=== PATIENT | female | born 1965 | race Two or more races ===

== ENCOUNTER 2017-02-26 07:43 | Emergency (ER) | payer OTHER ==
[2017-02-26] MEDS ORDERED: Acetaminophen/HYDROcodone 325-5 MG Tab PO ONE (08:16)
--- NOTE | 2017-02-26 08:20 | EDM.PDOC ---
ED HPI GENERAL MEDICAL PROBLEM - General Chief Complaint: Abdominal Pain Stated Complaint: LOW BACK AND LOW ABD PAIN Time Seen by Provider: 02/26/17 08:09 Source of Information: Reports: Patient, RN Notes Reviewed - History of Present Illness INITIAL COMMENTS - FREE TEXT/NARRATIVE: 51 year old female comes in with voiding frequency, low back pain worsening over the past 5 days. Not aware of any injury. No fever, nausea or vomiting. Pain is worse with movement, radiates to lower abd and pelvis. 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: Neurological History: Reports: Brain Injury - Past Surgical History Female Surgical History: Reports: Section, Dilitation & Evacuation Musculoskeletal Surgical History: Reports: Other (See Below) Other Musculoskeletal Surgeries/Procedures:: bilateral tib fib fractures and has hardware in place Social & Family History - Tobacco Use Smoking Status *Q: Current Every Day Smoker Years of Tobacco use: 10 Packs/Tins Daily: 0.5 - Caffeine Use Caffeine Use: Reports: Coffee - Recreational Drug Use Recreational Drug Use: Yes Recreational Drug Type: Reports: Marijuana/Hashish Recreational Drug Use Frequency: Binges ED ROS GENERAL - Review of Systems Review Of Systems: See Below Constitutional: Denies: Fever, Chills, Diaphoresis HEENT: Reports: No Symptoms Respiratory: Denies: Shortness of Breath, Pleuritic Chest Pain Cardiovascular: Denies: Chest Pain GI/Abdominal: Reports: Abdominal Pain. Denies: Constipation, Diarrhea, Decreased Appetite, Nausea : Reports: Frequency, Urgency. Denies: Pain Musculoskeletal: Reports: Back Pain (low back) Skin: Reports: No Symptoms Neurological: Reports: No Symptoms. Denies: Numbness, Tingling, Weakness ED EXAM, RENAL/ - Physical Exam Exam: See Below General Appearance: Alert, Mild Distress Throat/Mouth: Normal Inspection, Normal Oropharynx Head: Atraumatic. No: Facial Swelling Neck: Supple, Full Range of Motion Respiratory/Chest: No Respiratory Distress, Lungs Clear, Normal Breath Sounds Cardiovascular: Regular Rate, Rhythm GI/Abdominal: Soft, Non-Tender Extremities: Normal Inspection, Normal Range of Motion Skin Exam: Warm, Dry, Normal Color Course - Vital Signs Last Recorded V/S: Last Vital Signs Temp 97.4 F 02/26/17 08:01 Pulse 63 02/26/17 08:01 Resp 13 02/26/17 08:01 BP 154/74 H 02/26/17 08:01 Pulse Ox 100 02/26/17 08:01 - Orders/Labs/Meds Labs: Laboratory Tests 02/26/17 02/26/17 02/26/17 Range/Units 08:00 08:27 08:27 WBC 11.05 H (3.98-10.04) K/mm3 RBC 4.44 (3.98-5.22) M/mm3 Hgb 14.1 (11.2-15.7) gm/L Hct 41.3 (34.1-44.9) % MCV 93.0 (79.4-94.8) fl MCH 31.8 (25.6-32.2) pg MCHC 34.1 (32.2-35.5) g/dl RDW Std Deviation 44.0 (36.4-46.3) fL Plt Count 320 (182-369) K/mm3 MPV 10.0 (9.4-12.3) fl Neut % (Auto) 61.3 (34.0-71.1) % Lymph % (Auto) 29.3 (19.3-51.7) % [place] % (Auto) 4.6 L (4.7-12.5) % Eos % (Auto) 3.8 (0.7-5.8) Baso % (Auto) 0.7 (0.1-1.2) % Neut # (Auto) 6.77 H (1.56-6.13) K/mm3 Lymph # (Auto) 3.24 (1.18-3.74) K/mm3 [place] # (Auto) 0.51 H (0.24-0.36) K/mm3 Eos # (Auto) 0.42 H (0.04-0.36) K/mm3 Baso # (Auto) 0.08 (0.01-0.08) K/mm3 Sodium 148 H (136-145) mEq/L Potassium 4.2 (3.5-5.1) mEq/L Chloride 113 H (98-107) mEq/L Carbon Dioxide 24 (21-32) mEq/L Anion Gap 15.2 H (5-15) BUN 9 (7-18) mg/dL Creatinine 0.7 (0.55-1.02) mg/dL Est Cr Clr Drug Dosing 87.48 mL/min Estimated GFR (MDRD) > 60 (>60) mL/min BUN/Creatinine Ratio 12.9 L (14-18) Glucose 119 H (74-106) mg/dL Calcium 9.0 (8.5-10.1) mg/dL Total Bilirubin 0.2 (0.2-1.0) mg/dL AST 12 L (15-37) U/L ALT 15 (14-59) U/L Alkaline Phosphatase 75 (46-116) U/L Total Protein 7.3 (6.4-8.2) g/dl Albumin 3.8 (3.4-5.0) g/dl Globulin 3.5 gm/dL Albumin/Globulin Ratio 1.1 (1-2) Urine Color Yellow (Yellow) Urine Appearance Clear (Clear) Urine pH 6.5 (5.0-8.0) Ur Specific Parsons 1.015 (1.005-1.030) Urine Protein Negative (Negative) Urine Glucose (UA) Negative (Negative) Urine Ketones Negative (Negative) Urine Occult Blood Trace-intact H (Negative) Urine Nitrite Negative (Negative) Urine Bilirubin Negative (Negative) Urine Urobilinogen 0.2 (0.2-1.0) Ur Leukocyte Esterase 2+ H (Negative) Urine RBC 0-5 (0-5) /hpf Urine WBC 5-10 H (0-5) /hpf Ur Epithelial Cells 0-5 (0-5) /hpf Urine Bacteria Few (FEW) /hpf Urine Mucus Not seen (FEW) /hpf Urine Trichomonas Few Meds: Medications Discontinued Medications Generic Name Dose Route Start Last Admin Trade Name Freq PRN Reason Stop Dose Admin Hydrocodone Bitart/Acetaminophen 1 tab 02/26/17 08:16 02/26/17 08:19 Unity 325-5 Mg PO 02/26/17 08:17 1 tab ONETIME ONE Administration Trimethoprim/Sulfamethoxazole 1 tab 02/26/17 09:07 02/26/17 09:15 Septra Ds PO 02/26/17 09:08 1 tab ONETIME ONE Administration - Re-Assessments/Exams Free Text/Narrative Re-Assessment/Exam: 02/26/17 09:13 Patient does have UTI, does not look like pyelo, afebrile, no nausea or vomiting , WBC very mildly elevated, will start on Bactrim DS bid for 7 days. Departure - Departure Time of Disposition: 09:00 Disposition: Home, Self-Care 01 Condition: Fair Clinical Impression: UTI (urinary tract infection) Qualifiers: Urinary tract infection type: acute cystitis Hematuria presence: without hematuria Qualified Code(s): N30.00 - Acute cystitis without hematuria - Discharge Information Prescriptions: Hydrocodone/Acetaminophen [Unity 5-325] 1 tab PO Q6HR PRN #10 tablet PRN Reason: Pain Sulfamethoxazole/Trimethoprim [Bactrim Ds Tablet] 1 each PO BID #14 tablet Instructions: Urinary Tract Infection, Adult, [id number] Referrals: PCP,None [Ordering Only Provider] - Forms: ED Department Discharge Additional Instructions: drink plenty of water, Bactrim DS antibiotic twice daily for 1 week or until gone, tylenol for mild to moderate discomfort or hydrocodone if needed for severe pain, do not take hydrocodone and tylenol at the same time, do not drive or work when taking hydrocodone. follow up clinic if not much better within 3 to 5 days as expected.
[2017-02-26] MEDS ORDERED: Sulfamethoxazole/Trimethoprim 800-160 MG Tab PO ONE (09:07)
== END 2017-02-26 09:35 | disposition home or self-care (01) ==
LOC: JD.ED 07:43
DX: N30.00 Acute cystitis without hematuria (principal); F17.210 Nicotine dependence, cigarettes, uncomplicated
CPT/HCPCS: 36415; 80053; 81001; 85025; 99283; A9270

== ENCOUNTER 2019-07-26 07:18 | Emergency (ER) | payer MEDICAID, OTHER ==
--- NOTE | 2019-07-26 07:42 | EDM.PDOC ---
ED HPI GENERAL MEDICAL PROBLEM - General Chief Complaint: Lower Extremity Injury/Pain Stated Complaint: LEFT KNEE PAIN Time Seen by Provider: 07/26/19 07:30 Source of Information: Reports: Patient History Limitations: Reports: No Limitations - History of Present Illness INITIAL COMMENTS - FREE TEXT/NARRATIVE: The patient said about 2 weeks ago she was taking her mother to a doctor's appointment and they were stepping off a curb and both fell. She got up right away to help her mom and she did not feel pain. She has been working for about 2 weeks and she has pain to the lateral knee. She had a knee replacement a few years ago. She has no other injuries. Onset: Sudden Duration: Week(s): (2) Location: Reports: Lower Extremity, Left (knee) Quality: Reports: Sharp Severity: Moderate Improves with: Reports: Immobilization Worsens with: Reports: Movement Context: Reports: Trauma (fall) Associated Symptoms: Reports: No Other Symptoms Left Knee Pain Score (Numeric/FACES): 5 - Related Data Allergies Allergy/AdvReac Type Severity Reaction Status Date / Time No Known Allergies Allergy Verified 07/26/19 07:27 Home Meds: Home Meds Cyclobenzaprine [Flexeril] 10 mg PO BEDTIME 07/26/19 [History] Hydrocodone/Acetaminophen [Hydrocodone-Acetamin 5-325 mg] 1 - 2 each PO Q6HR PRN #20 tablet 07/26/19 [Rx] Lisinopril/Hydrochlorothiazide [Lisinopril-Hctz 20-25 mg Tab] 20 - 25 mg PO DAILY 07/26/19 [History] Sennosides [Senna] 8.6 mg PO DAILY 07/26/19 [History] Venlafaxine HCl [Venlafaxine ER] 150 mg PO DAILY 07/26/19 [History] 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 History: Reports: Brain Injury - Past Surgical History Female Surgical History: Reports: Section, Dilitation & Evacuation Musculoskeletal Surgical History: Reports: Other (See Below) Other Musculoskeletal Surgeries/Procedures:: bilateral tib fib fractures and has hardware in place Social & Family History - Tobacco Use Smoking Status *Q: Former Smoker Used Tobacco, but Quit: Yes Month/Year Tobacco Last Used: 07/20/2019 - Caffeine Use Caffeine Use: Reports: None - Recreational Drug Use Recreational Drug Use: No Review of Systems - Review of Systems Review Of Systems: See Below Constitutional: Reports: No Symptoms Eyes: Reports: No Symptoms Ears: Reports: No Symptoms Nose: Reports: No Symptoms Mouth/Throat: Reports: No Symptoms Respiratory: Reports: No Symptoms Cardiovascular: Reports: No Symptoms GI/Abdominal: Reports: No Symptoms Genitourinary: Reports: No Symptoms Musculoskeletal: Reports: Joint Pain (left knee) ED EXAM, GENERAL - Physical Exam Exam: See Below Exam Limited By: No Limitations General Appearance: Alert, No Apparent Distress Ears: Normal External Exam Nose: Normal Inspection Head: Atraumatic, Normocephalic Neck: Normal Inspection Respiratory/Chest: No Respiratory Distress Extremities: Other (Anterior scar to the left knee with no edema. Pain upon palpation to the lateral lower knee. Good sensation and pulses distally.) Course - Vital Signs Last Recorded V/S: Last Vital Signs Temp 97.4 F 07/26/19 07:30 Pulse 70 07/26/19 07:30 Resp 18 07/26/19 07:30 BP 115/66 07/26/19 07:30 Pulse Ox 97 07/26/19 07:30 - Orders/Labs/Meds Orders: Active Orders 24 hr Category Date Time Status Knee Min 4V Lt [CR] Stat Exams 07/26/19 07:37 Taken - Re-Assessments/Exams Free Text/Narrative Re-Assessment/Exam: 07/26/19 07:42 I have ordered an x-ray of her knee. 07/26/19 08:01 Her x-ray shows hardware and there is an old fracture to the proximal tibia and fibula. There appears to be nothing new. Departure - Departure Time of Disposition: 08:05 Disposition: Home, Self-Care 01 Condition: Good Clinical Impression: Fall Qualifiers: Encounter type: initial encounter Qualified Code(s): W19.XXXA - Unspecified fall, initial encounter Knee pain Qualifiers: Chronicity: acute Laterality: left Qualified Code(s): M25.562 - Pain in left knee - Discharge Information *PRESCRIPTION DRUG MONITORING PROGRAM REVIEWED*: No *COPY OF PRESCRIPTION DRUG MONITORING REPORT IN PATIENT JELANI: No Prescriptions: Hydrocodone/Acetaminophen [Hydrocodone-Acetamin 5-325 mg] 1 - 2 each PO Q6HR PRN #20 tablet PRN Reason: Pain Referrals: Raad Pollock MD [Primary Care Provider] - Dusty Cary MD [Physician] - 1 Week Forms: ED Department Discharge Additional Instructions: Ice your knee for 15 minutes 3 times per day for 2 days. Take tylenol or motrin for pain. If that does not help, try the hydrocodone. Try wearing the brace for comfort. Please return if you are worse. Follow up with Dr Cary. Sepsis Event Note (ED) - Evaluation Sepsis Screening Result: No Definite Risk - Focused Exam Vital Signs: Vital Signs Temp Pulse Resp BP Pulse Ox 07/26/19 07:30 97.4 F 70 18 115/66 97 - My Orders Last 24 Hours: My Active Orders 07/26/19 07:37 Knee Min 4V Lt [CR] Stat - Assessment/Plan Last 24 Hours: My Active Orders 07/26/19 07:37 Knee Min 4V Lt [CR] Stat
--- NOTE | 2019-07-26 08:07 | CR ---
Left knee: 4 views left knee were obtained. Comparison: No prior knee exam. Knee prosthesis is seen. Components are aligned. Old fracture deformities are noted within the proximal tibia and fibula. No acute abnormality is seen. Impression: 1. Knee prosthesis and old healed fracture deformities. 2. Nothing acute is appreciated. Diagnostic code #2 This report was dictated in MDT
== END 2019-07-26 08:15 | disposition home or self-care (01) ==
LOC: JD.ED 07:18
DX: M25.562 Pain in left knee (principal); Z87.891 Personal history of nicotine dependence; Z79.899 Other long term (current) drug therapy; W10.1XXA Fall (on)(from) sidewalk curb, initial encounter
CPT/HCPCS: 73564-26-LT; 73564-LT; 99283

== ENCOUNTER 2020-04-04 16:28 | Emergency (ER) | payer MEDICARE, MEDICAID ==
--- NOTE | 2020-04-04 16:58 | EDM.PDOC ---
ED HPI GENERAL MEDICAL PROBLEM - General Chief Complaint: Genitourinary Problem Stated Complaint: ABDOMINAL PAIN,COUGH, VOMITING Time Seen by Provider: 04/04/20 16:53 Source of Information: Reports: Patient, Family (spouse) History Limitations: Reports: No Limitations - History of Present Illness INITIAL COMMENTS - FREE TEXT/NARRATIVE: 54-year-old female presents to the ED generally not feeling well for the last 3 days. She reports generalized headache for the last 3 days reports it quite bad as 10 out of 10 and she rarely gets headaches. Associated nausea because of this. Associated intermittent chills particular last night and the night before. She has a paroxysmal minimally productive cough mostly of whitish sputum. Nausea and occasional vomiting of thick mucus-like material with a little bit of bile staining. Complete loss of appetite today. She had 1 loose diarrhea stool today as well. Patient was recently diagnosed with type 2 diabetes and started on Metformin in early February of this year. Dosage was increased from 500 mg once daily on 14 March to 1 g twice daily. Yesterday she was seen in clinic and Xavi Dawn she received Rocephin 1 g intramuscularly from the sounds of things and Cipro 500 mg p.o. nallen and diagnosed with a urinary tract infection although apparently there was just red blood cells in the urine no pus cells. Feels fatigued with no energy and loss of appetite. 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 Note she appreciates severe thirst but not I cannot comment on severe polyuria. Of note many of her signs and symptoms are that of possible COVID-19 illness. She will therefore have a Covid screen as part of her work-up. Patient did not take any Cipro today and she did not take her Metformin either since she has not eaten at all today. Onset: Gradual Onset Date: 04/01/20 Duration: Day(s):, Constant, Getting Worse Location: Reports: Head (Headache which she rates as 10 out of 10.), Chest (Intermittent paroxysmal minimally productive cough for the last 2 to 3 days.), Abdomen (Nausea bring up thick mucus slightly bile-stained emesis x2 today), Generalized, Other (For the last few days as well.) Quality: Reports: Ache (Headache. Mild diffuse myalgia particular a) Severity: Moderate (neck and lower back muscles.) Improves with: Reports: None Worsens with: Reports: None Context: Denies: Activity, Exercise, Lifting, Sick Contact, Trauma, Other Associated Symptoms: Reports: Cough (The sputum paroxysmal intermittent cough), cough w sputum, Fever/Chills, Headaches (Chills but no defined fever. Pounding throbbing pulsating headache for 3 days which she reports is 10 out of 10), Loss of Appetite ( rarely gets a headache.), Malaise, Nausea/Vomiting (Nausea due to the intense of the headache and vomiting x1 so far today but it was just mucus.), Shortness of Breath, Weakness (With associated severe fatigue), Other (1 large volume stool loss today.). Denies: No Other Symptoms, Confusion, Chest Pain ( x3 days), Diaphoresis, Rash, Seizure (Mild.), Syncope Treatments GENERAL INTERNIST AND PHYSICIAN LEADER: Reports: Acetaminophen Lower Back Pain Score (Numeric/FACES): 10 Lower Pelvic Pain Score (Numeric/FACES): 10 Headache Pain Score (Numeric/FACES): 10 - Related Data Allergies Allergy/AdvReac Type Severity Reaction Status Date / Time No Known Allergies Allergy Verified 07/26/19 07:27 Home Meds: Home Meds Cyclobenzaprine [Flexeril] 10 mg PO BEDTIME 07/26/19 [History] Lisinopril/Hydrochlorothiazide [Lisinopril-Hctz 20-25 mg Tab] 20 - 25 mg PO DAILY 07/26/19 [History] Sennosides [Senna] 8.6 mg PO DAILY 07/26/19 [History] Acetaminophen/HYDROcodone [[place] 325-5 MG] 1 tab PO Q4H #10 tablet 04/04/20 [Rx] Cefdinir [Omnicef] 300 mg PO BID #18 cap 04/04/20 [Rx] Escitalopram [Lexapro] 10 mg PO DAILY 04/04/20 [History] Magnesium Chloride [Slow-Mag] 71.5 mg PO DAILY #10 tablet. 04/04/20 [Rx] metFORMIN [Glucophage XR] 1,000 mg PO BID 04/04/20 [History] Past Medical History - Past Health History Medical/Surgical History: Denies Medical/Surgical History Cardiovascular History: Reports: Hypertension [employer]ER History: Reports: Neurological History: Reports: Brain Injury Psychiatric History: Reports: Addiction, Anxiety, Depression - Past Surgical History Female Surgical History: Reports: Section, Dilitation & Evacuation Musculoskeletal Surgical History: Reports: Other (See Below) Other Musculoskeletal Surgeries/Procedures:: bilateral tib fib fractures and has hardware in place Social & Family History - Caffeine Use Caffeine Use: Reports: None - Living Situation & Occupation Living situation: Reports: Occupation: Employed ED ROS GENERAL - Review of Systems Review Of Systems: See Below Constitutional: Reports: Chills, Malaise, Weakness (The last 2 days.), Fatigue, Decreased Appetite (Overwhelming fatigue particularly noted today. Has no appetite at all.). Denies: Fever HEENT: Reports: Glasses (For reading.) Respiratory: Reports: Shortness of Breath, Cough (Intermittent paroxysmal cough producing whitish sputum.). Denies: Wheezing, Pleuritic Chest Pain (Mild.), Hemoptysis Cardiovascular: Reports: Dyspnea on Exertion, Lightheadedness. Denies: Chest Pain, Blood Pressure Problem, Claudication, Edema (Especially when she gets up too quickly from a seated or lying down position), Orthopnea, Palpitations (On occasion.) Endocrine: Reports: Fatigue GI/Abdominal: Reports: Diarrhea (1 large volume diarrhea stool this morning. No blood), Nausea (Nausea off and on for 2 days. Has not eaten at all today.), Vomiting ( He is very thirsty. Emesis x1 today of a small amount of mucus mixed with a little bit of bile.) : Reports: Frequency, Other (Apparently was started on antibiotic yesterday in clinic I Cipro 500 twice daily for blood in the urine there is no comment about whether there was any pyuria.). Denies: Dysuria, Incontinence Musculoskeletal: Reports: Other (Neurolyse myalgia particularly neck low back and thighs.) Skin: Reports: No Symptoms Neurological: Reports: Dizziness, Headache, Weakness. Denies: Confusion, Numbness, Syncope, Tingling (Noted 10 generalized pulsating throbbing headache) Psychiatric: Reports: No Symptoms Hematologic/Lymphatic: Reports: No Symptoms Immunologic: Reports: No Symptoms ED EXAM, GI/ABD - Physical Exam Exam: See Below Exam Limited By: No Limitations General Appearance: Alert, WD/WN, Mild Distress, Other (Looks like she does not feel well. She does feel slightly warm to palpation and nurses recorded temperature at 37.2. Heart rate 100 and sinus respiratory to 20 blood pressure 108/63 O2 sats only 94% on room air.) Eyes: Bilateral: Normal Appearance (No scleral icterus no blepharal pallor.) Ears: Normal TMs Throat/Mouth: Other (Tongue is dry and coated.) Head: Atraumatic, Normocephalic Neck: Normal Inspection, Supple, Non-Tender, Full Range of Motion. No: Carotid Bruit, Lymphadenopathy (L), Lymphadenopathy (R), Thyromegaly Respiratory/Chest: No Respiratory Distress, Lungs Clear, Normal Breath Sounds, No Accessory Muscle Use, Chest Non-Tender Cardiovascular: Normal Peripheral Pulses, Regular Rate, Rhythm, No Edema, No Gallop, No Murmur, No Rub GI/Abdominal Exam: Normal Bowel Sounds, Soft, No Organomegaly, No Mass, Pelvis Stable, Tender, Other (And had recent laparoscopic cholecystectomy on March 19. Her surgical wounds appear to be healing very well they are tender to touch and tender if she coughs at times.) Back Exam: Normal Inspection, Full Range of Motion. No: CVA Tenderness (L), CVA Tenderness (R) Extremities: Normal Inspection, Normal Range of Motion, Non-Tender, No Pedal Edema Neurological: Alert, Oriented, CN II-XII Intact, Normal Cognition Psychiatric: Normal Affect, Normal Mood Skin Exam: Warm, Dry, Intact, Normal Color, No Rash #1 Interpretation EKG Date: 04/04/20 Time: 17:05 Rhythm: Other Rate (Beats/Min): 110 [place]: Normal P-Wave: Present QRS: Other (Early R wave transition consider right ventricular hypertrophy/septal hypertrophy pattern.) ST-T: Other (Nonspecific T wave flattening aVL) QT: Normal EKG Interpretation Comments: Borderline ECG Course - Vital Signs Last Recorded V/S: Last Vital Signs Temp 37.2 C 04/04/20 16:58 Pulse 100 04/04/20 16:58 Resp 20 04/04/20 16:58 BP 108/63 04/04/20 16:58 Pulse Ox 94 L 04/04/20 16:58 - Orders/Labs/Meds Orders: Active Orders 24 hr Category Date Time Status Blood Glucose Check, Bedside [RC] ONETIME Care 04/04/20 16:55 Active EKG Documentation Completion [RC] STAT Care 04/04/20 16:55 Active Chest 1V Frontal [CR] Stat Exams 04/04/20 16:54 Taken CULTURE BLOOD [BC] Stat Lab 04/04/20 17:20 Received CULTURE BLOOD [BC] Stat Lab 04/04/20 17:30 Received CULTURE URINE [RM] Stat Lab 04/04/20 17:20 Received Sodium Chloride 0.9% [Normal Saline] 1,000 ml Med 04/04/20 18:15 Active IV ASDIRECTED Blood Culture x2 Reflex Set [OM.PC] Stat Oth 04/04/20 16:55 Ordered Medication Orders Sodium Chloride (Normal Saline) 1,000 mls @ 500 mls/hr IV ASDIRECTED FRANC Last Admin: 04/04/20 18:55 Dose: 500 mls/hr Documented by: LESLI Labs: Laboratory Tests 04/04/20 04/04/20 04/04/20 Range/Units 17:20 17:20 17:20 WBC 15.78 H (3.98-10.04) K/mm3 RBC 3.92 L (3.98-5.22) M/mm3 Hgb 11.8 D (11.2-15.7) gm/dl Hct 35.9 (34.1-44.9) % MCV 91.6 (79.4-94.8) fl MCH 30.1 (25.6-32.2) pg MCHC 32.9 (32.2-35.5) g/dl RDW Std Deviation 42.2 (36.4-46.3) fL Plt Count 357 (182-369) K/mm3 MPV 10.0 (9.4-12.3) fl Neut % (Auto) 78.1 H (34.0-71.1) % Lymph % (Auto) 13.8 L (19.3-51.7) % [place] % (Auto) 6.9 (4.7-12.5) % Eos % (Auto) 0.7 (0.7-5.8) Baso % (Auto) 0.2 (0.1-1.2) % Neut # (Auto) 12.33 H (1.56-6.13) K/mm3 Lymph # (Auto) 2.17 (1.18-3.74) K/mm3 [place] # (Auto) 1.09 H (0.24-0.36) K/mm3 Eos # (Auto) 0.11 (0.04-0.36) K/mm3 Baso # (Auto) 0.03 (0.01-0.08) K/mm3 Manual Slide Review Normal smear Sodium 135 L D (136-145) mEq/L Potassium 3.7 (3.5-5.1) mEq/L Chloride 99 D (98-107) mEq/L Carbon Dioxide 19 L (21-32) mEq/L Anion Gap 20.7 H (5-15) BUN 29 H (7-18) mg/dL Creatinine 1.3 H (0.55-1.02) mg/dL Est Cr Clr Drug Dosing 40.04 mL/min Estimated GFR (MDRD) 43 (>60) mL/min BUN/Creatinine Ratio 22.3 H (14-18) Glucose 161 H (74-106) mg/dL POC Glucose (70-105) mg/dL Lactic Acid (0.4-2.0) mmol/L Calcium 9.3 (8.5-10.1) mg/dL Magnesium 1.5 L (1.8-2.4) mg/dl Total Bilirubin 0.2 (0.2-1.0) mg/dL AST 16 (15-37) U/L ALT 24 (14-59) U/L Alkaline Phosphatase 68 (46-116) U/L Lactate Dehydrogenase 158 (81-234) U/L Troponin I 0.089 H* (0.00-0.056) ng/mL C-Reactive Protein 22.5 H* (<1.0) mg/dL NT-Pro-B Natriuret Pep 37 (0-125) pg/mL Total Protein 7.7 (6.4-8.2) g/dl Albumin 3.4 (3.4-5.0) g/dl Globulin 4.3 gm/dL Albumin/Globulin Ratio 0.8 L (1-2) Urine Color (Yellow) Urine Appearance (Clear) Urine pH (5.0-8.0) Ur Specific [place] (1.005-1.030) Urine Protein (Negative) Urine Glucose (UA) (Negative) Urine Ketones (Negative) Urine Occult Blood (Negative) Urine Nitrite (Negative) Urine Bilirubin (Negative) Urine Urobilinogen (0.2-1.0) Ur Leukocyte Esterase (Negative) Urine RBC (0-5) /hpf Urine WBC (0-5) /hpf Ur Squamous Epith Cells (0-5) /hpf Urine Bacteria (FEW) /hpf Urine Mucus (FEW) /hpf SARS-CoV-2 RNA (WON) (NEGATIVE) 04/04/20 04/04/20 04/04/20 Range/Units 17:20 17:20 17:20 WBC (3.98-10.04) K/mm3 RBC (3.98-5.22) M/mm3 Hgb (11.2-15.7) gm/dl Hct (34.1-44.9) % MCV (79.4-94.8) fl MCH (25.6-32.2) pg MCHC (32.2-35.5) g/dl RDW Std Deviation (36.4-46.3) fL Plt Count (182-369) K/mm3 MPV (9.4-12.3) fl Neut % (Auto) (34.0-71.1) % Lymph % (Auto) (19.3-51.7) % [place] % (Auto) (4.7-12.5) % Eos % (Auto) (0.7-5.8) Baso % (Auto) (0.1-1.2) % Neut # (Auto) (1.56-6.13) K/mm3 Lymph # (Auto) (1.18-3.74) K/mm3 [place] # (Auto) (0.24-0.36) K/mm3 Eos # (Auto) (0.04-0.36) K/mm3 Baso # (Auto) (0.01-0.08) K/mm3 Manual Slide Review Sodium (136-145) mEq/L Potassium (3.5-5.1) mEq/L Chloride (98-107) mEq/L Carbon Dioxide (21-32) mEq/L Anion Gap (5-15) BUN (7-18) mg/dL Creatinine (0.55-1.02) mg/dL Est Cr Clr Drug Dosing mL/min Estimated GFR (MDRD) (>60) mL/min BUN/Creatinine Ratio (14-18) Glucose (74-106) mg/dL POC Glucose (70-105) mg/dL Lactic Acid 1.4 (0.4-2.0) mmol/L Calcium (8.5-10.1) mg/dL Magnesium (1.8-2.4) mg/dl Total Bilirubin (0.2-1.0) mg/dL AST (15-37) U/L ALT (14-59) U/L Alkaline Phosphatase (46-116) U/L Lactate Dehydrogenase (81-234) U/L Troponin I (0.00-0.056) ng/mL C-Reactive Protein (<1.0) mg/dL NT-Pro-B Natriuret Pep (0-125) pg/mL Total Protein (6.4-8.2) g/dl Albumin (3.4-5.0) g/dl Globulin gm/dL Albumin/Globulin Ratio (1-2) Urine Color Yellow (Yellow) Urine Appearance Clear (Clear) Urine pH 6.0 (5.0-8.0) Ur Specific [place] 1.020 (1.005-1.030) Urine Protein 1+ H (Negative) Urine Glucose (UA) Negative (Negative) Urine Ketones Negative (Negative) Urine Occult Blood Trace-intact H (Negative) Urine Nitrite Negative (Negative) Urine Bilirubin Negative (Negative) Urine Urobilinogen 0.2 (0.2-1.0) Ur Leukocyte Esterase 2+ H (Negative) Urine RBC 0-5 (0-5) /hpf Urine WBC 20-30 H (0-5) /hpf Ur Squamous Epith Cells 5-10 H (0-5) /hpf Urine Bacteria Few (FEW) /hpf Urine Mucus Few (FEW) /hpf SARS-CoV-2 RNA (WON) Negative (NEGATIVE) 04/04/20 Range/Units 17:22 WBC (3.98-10.04) K/mm3 RBC (3.98-5.22) M/mm3 Hgb (11.2-15.7) gm/dl Hct (34.1-44.9) % MCV (79.4-94.8) fl MCH (25.6-32.2) pg MCHC (32.2-35.5) g/dl RDW Std Deviation (36.4-46.3) fL Plt Count (182-369) K/mm3 MPV (9.4-12.3) fl Neut % (Auto) (34.0-71.1) % Lymph % (Auto) (19.3-51.7) % [place] % (Auto) (4.7-12.5) % Eos % (Auto) (0.7-5.8) Baso % (Auto) (0.1-1.2) % Neut # (Auto) (1.56-6.13) K/mm3 Lymph # (Auto) (1.18-3.74) K/mm3 [place] # (Auto) (0.24-0.36) K/mm3 Eos # (Auto) (0.04-0.36) K/mm3 Baso # (Auto) (0.01-0.08) K/mm3 Manual Slide Review Sodium (136-145) mEq/L Potassium (3.5-5.1) mEq/L Chloride (98-107) mEq/L Carbon Dioxide (21-32) mEq/L Anion Gap (5-15) BUN (7-18) mg/dL Creatinine (0.55-1.02) mg/dL Est Cr Clr Drug Dosing mL/min Estimated GFR (MDRD) (>60) mL/min BUN/Creatinine Ratio (14-18) Glucose (74-106) mg/dL POC Glucose 184 H (70-105) mg/dL Lactic Acid (0.4-2.0) mmol/L Calcium (8.5-10.1) mg/dL Magnesium (1.8-2.4) mg/dl Total Bilirubin (0.2-1.0) mg/dL AST (15-37) U/L ALT (14-59) U/L Alkaline Phosphatase (46-116) U/L Lactate Dehydrogenase (81-234) U/L Troponin I (0.00-0.056) ng/mL C-Reactive Protein (<1.0) mg/dL NT-Pro-B Natriuret Pep (0-125) pg/mL Total Protein (6.4-8.2) g/dl Albumin (3.4-5.0) g/dl Globulin gm/dL Albumin/Globulin Ratio (1-2) Urine Color (Yellow) Urine Appearance (Clear) Urine pH (5.0-8.0) Ur Specific [place] (1.005-1.030) Urine Protein (Negative) Urine Glucose (UA) (Negative) Urine Ketones (Negative) Urine Occult Blood (Negative) Urine Nitrite (Negative) Urine Bilirubin (Negative) Urine Urobilinogen (0.2-1.0) Ur Leukocyte Esterase (Negative) Urine RBC (0-5) /hpf Urine WBC (0-5) /hpf Ur Squamous Epith Cells (0-5) /hpf Urine Bacteria (FEW) /hpf Urine Mucus (FEW) /hpf SARS-CoV-2 RNA (WON) (NEGATIVE) Meds: Medications Generic Name Dose Route Start Last Admin Trade Name Freq PRN Reason Stop Dose Admin Sodium Chloride 1,000 mls @ 500 mls/hr 04/04/20 18:15 04/04/20 18:55 Normal Saline IV 500 mls/hr ASDIRECTED FRANC Administration Discontinued Medications Generic Name Dose Route Start Last Admin Trade Name Freq PRN Reason Stop Dose Admin Hydromorphone HCl 1 mg 04/04/20 17:12 04/04/20 17:31 Dilaudid IVPUSH 04/04/20 17:13 1 mg ONETIME ONE Administration Lactated Ringer's 1,000 mls @ 999 mls/hr 04/04/20 17:00 04/04/20 17:24 Ringers, Lactated IV 999 mls/hr ASDIRECTED FRANC Administration Ceftriaxone Sodium 2 gm/ 100 mls @ 200 mls/hr 04/04/20 18:12 04/04/20 18:56 Sodium Chloride IV 04/04/20 18:41 200 mls/hr ONETIME ONE Administration Metoclopramide HCl 7.5 mg 04/04/20 17:12 04/04/20 17:30 Reglan IVPUSH 04/04/20 17:13 7.5 mg ONETIME ONE Administration - Radiology Interpretation Free Text/Narrative:: 54-year-old female presents to the ED not feeling well for the last 3 days. She has a generalized severe headache which she rates 10 out of 10. She rarely gets headaches. No associated photophobia or phonophobia. She has diffuse ache in her large muscle groups neck low back and thighs. No appetite at all. Recently diagnosed with type 2 diabetes and did not take any Metformin today. She is currently on 1000 mg twice daily. Blood sugar when she checked at home today was 205. Patient has nausea and did have one small spit up of mucus mixed with a little bit of bile staining. She has had one one fairly large volume yellow stool loss today. None yesterday. 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 She has had multitude Covid tested always proved to be negative. She received her first Covid 19 vaccination on March 13. On March 19 she underwent laparoscopic cholecystectomy. She tolerated the operation well and states that she has not had diarrhea since surgery. Her wounds hurt a little bit if she coughs but otherwise appear to be healing well. Plan she will have a septic work-up including a COVID-19 screen. She will have a lactic acid. She does feel slightly warm to palpation to me and she is complaining of chills the last few nights. She was told yesterday that she might have a urinary tract infection from what she was told and [place] she only had red cells in her urine no pus cells. She was given Rocephin intramuscularly presumably 1 g and given Cipro 500 mg p.o. 1 tablet. She has not taken any further tablets of Cipro today. She is extremely thirsty and tongue is dry and coated. Plan IV will be Ringer's lactate at open. Chest x- ray x1 view to be done. ECG. We will give Dilaudid 1 mg IV with Reglan 10 mg IV for headache and nausea relief. - Re-Assessments/Exams Free Text/Narrative Re-Assessment/Exam: 04/04/20 18:00 x-ray reveals limited inspiratory view. Cardiac silhouette is normal. Lung parenchyma are clear. There is no pleural effusion and no pneumothorax. No evidence of pneumonia. 04/04/20 18:02 Hematology reveals a elevated white count at 15.78 with the auto differential showing 78% neutrophils. Hemoglobin is 11.8 with hematocrit of 35.9. Platelet counts 357,000. Glucose at the bedside is 184. Is yellow with 1+ proteinuria trace of occult blood 2+ leukocyte esterase and 20-30 WBCs per high-power field with 5-2 and squamous epithelial cells. Urine culture will be ordered although it may not grow out anything since the patient had Rocephin given intramuscularly yesterday and has taken 1 Cipro 500 mg tablet yesterday as well. With an elevated white count left shift and positive urinalysis highly suggestive of pyelonephritis patient will be given Rocephin 2 g intravenously at this time. She states her headache is gone at this point time and her nausea is improved. 04/04/20 19:08 Chemistry reveals a sodium of 135 and a potassium of 3.7. Chloride is 99 with a bicarb of 19 anion gap is 20.7. BUN is 29 with a creatinine of 1.3 GFR is 43 BUN/creatinine ratio is 22.3. Glucose 161 in the lab and is 184 at the bedside. Lactic acid is normal at 1.4. Calcium 9.3 with a magnesium slightly low at 1.5. Liver function is normal. LDH is normal at 158. Troponin I is 0.089 slightly elevated. C-reactive protein is 22.5 BNP is 37. Total protein 7.7 with albumin fraction of 3.4. COVID-19 screen is negative. 04/04/20 19:16 Because the patient's troponin came back slightly elevated at 0.089 I questioned her firmly and she has had absolutely no chest pain and ECG is normal. I am therefore going to ignore it at this time. She is feeling much improved after IV fluids and medication for headache relief and nausea relief. She just started her Rocephin infusion and will therefore be a better part of an hour before she can be discharged. I will write out discharge medications and her discharge at this time. She will be discharged this and is a Rocephin 2 g has been infused. Departure - Departure Time of Disposition: 19:15 Disposition: Home, Self-Care 01 Condition: Fair Clinical Impression: Febrile illness, Pyelonephritis, Hypomagnesemia - Discharge Information *PRESCRIPTION DRUG MONITORING PROGRAM REVIEWED*: Not Applicable *COPY OF PRESCRIPTION DRUG MONITORING REPORT IN PATIENT JELANI: Not Applicable Prescriptions: Acetaminophen/HYDROcodone [[place] 325-5 MG] 1 tab PO Q4H #10 tablet Cefdinir [Omnicef] 300 mg PO BID #18 cap Magnesium Chloride [Slow-Mag] 71.5 mg PO DAILY #10 tablet. Instructions: Pyelonephritis, Adult, [id number] Referrals: Raad Pollock MD [Primary Care Provider] - Forms: ED Department Discharge Additional Instructions: Evaluation in the emergency room today in regards to generally not feeling well for the last 3 days with an associated headache, nausea, fatigue, loss of appetite mild paroxysmal nonproductive cough and one diarrhea stool earlier today. Investigations done through the ED did reveal evidence of an underlying infection with an elevated white blood cell count at greater than 15,000 with normal being under 10,000. The urinalysis is also strongly positive for an infection involving the kidneys called pyelonephritis. You were given initial dose of antibiotic Rocephin 2 g intravenously while in the ED. You will need to stop the Cipro medication you were started on yesterday. Replace it with Omnicef 300 mg twice daily for 9 more days with the first tablet due tomorrow morning. I have also written a prescription for a few pain pills [place] 5/325 mg strength 1 or 2 every 4-6 hours as needed for further headache relief and body ache relief. He would also benefit from taking Motrin 600 mg every 6 hours to reduce fever and body aches and pains. Expect marked improvement in the next 48 hours. Plenty of fluids such as Gatorade or Powerade will maintain hydration. Advance diet as able. Sepsis Event Note (ED) - Focused Exam Vital Signs: Vital Signs Temp Pulse Resp BP Pulse Ox 04/04/20 16:58 37.2 C 100 20 108/63 94 L - My Orders Last 24 Hours: My Active Orders 04/04/20 16:54 Chest 1V Frontal [CR] Stat 04/04/20 16:55 Blood Glucose Check, Bedside [RC] ONETIME EKG Documentation Completion [RC] STAT Blood Culture x2 Reflex Set [OM.PC] Stat 04/04/20 17:20 CULTURE BLOOD [BC] Stat CULTURE URINE [RM] Stat 04/04/20 17:30 CULTURE BLOOD [BC] Stat 04/04/20 18:15 Sodium Chloride 0.9% [Normal Saline] 1,000 ml IV ASDIRECTED - Assessment/Plan Last 24 Hours: My Active Orders 04/04/20 16:54 Chest 1V Frontal [CR] Stat 04/04/20 16:55 Blood Glucose Check, Bedside [RC] ONETIME EKG Documentation Completion [RC] STAT Blood Culture x2 Reflex Set [OM.PC] Stat 04/04/20 17:20 CULTURE BLOOD [BC] Stat CULTURE URINE [RM] Stat 04/04/20 17:30 CULTURE BLOOD [BC] Stat 04/04/20 18:15 Sodium Chloride 0.9% [Normal Saline] 1,000 ml IV ASDIRECTED
[2020-04-04] MEDS ORDERED: Lactated Ringers 1,000 ML IV SCH (17:00)
[2020-04-04] MEDS ORDERED: Metoclopramide 10 MG/2 ML SDV IVPUSH ONE (17:12)
[2020-04-04] MEDS ORDERED: HYDROmorphone 1 MG/ML Syringe IVPUSH ONE (17:12)
[2020-04-04] MEDS ORDERED: cefTRIAXone 2 GM in Sodium Chloride 0.9% 100 ML IV ONE (18:12)
[2020-04-04] MEDS ORDERED: Sodium Chloride 0.9% 1,000 ML IV SCH (18:15)
--- NOTE | 2020-04-05 09:00 | CR ---
Chest: Portable view of the chest was obtained. Comparison: No previous chest imaging is available. Heart size and mediastinum are normal. Lungs are clear with no acute parenchymal change. No gross bony abnormality is appreciated. Impression: 1. Nothing acute is seen on portable chest x-ray. Diagnostic code #1
== END 2020-04-04 20:04 | disposition home or self-care (01) ==
LOC: JD.ED 16:28
DX: N12 Tubulo-interstitial nephritis, not specified as acute or chronic (principal); E83.42 Hypomagnesemia; I10 Essential (primary) hypertension; Z90.49 Acquired absence of other specified parts of digestive tract; Z79.899 Other long term (current) drug therapy; Z20.822 Contact with and (suspected) exposure to COVID-19; R06.02 Shortness of breath
CPT/HCPCS: 36415; 71045; 71045-26; 80053; 81001; 82962; 83605; 83615; 83735; 83880; 84484; 85025; 86140; 87040; 87086; 87106; 93005; 96365; 96375; 99284; 99284-25; J0696; J1170; J2765; J7030; J7120; U0002

== ENCOUNTER 2020-07-14 11:37 | Emergency (ER) | payer OTHER, MEDICAID, MEDICARE ==
--- NOTE | 2020-07-14 12:22 | EDM.PDOC ---
ED HPI GENERAL MEDICAL PROBLEM - General Chief Complaint: Genitourinary Problem Stated Complaint: PAINFUL URINATION Time Seen by Provider: 07/14/20 11:46 Source of Information: Reports: Patient History Limitations: Reports: No Limitations - History of Present Illness INITIAL COMMENTS - FREE TEXT/NARRATIVE: The patient presents with dysuria and lower abdominal pain. This started today. She says it feels like a bladder infection. She has no fever, chills, cough or chest pain. Onset: Gradual Duration: Hour(s): Location: Reports: Abdomen Quality: Reports: Sharp Severity: Mild Improves with: Reports: None Worsens with: Reports: None Associated Symptoms: Denies: Chest Pain, Cough, Fever/Chills, Headaches, Nausea/Vomiting, Shortness of Breath Treatments [employer]: Reports: NSAIDS Generalized Pain Score (Numeric/FACES): 10 - Related Data Allergies Allergy/AdvReac Type Severity Reaction Status Date / Time No Known Allergies Allergy Verified 07/14/20 11:44 Home Meds: Home Meds Lisinopril/Hydrochlorothiazide [Lisinopril-Hctz 20-25 mg Tab] 20 - 25 mg PO DAILY 07/26/19 [History] Sennosides [Senna] 8.6 mg PO DAILY 07/26/19 [History] Acetaminophen/HYDROcodone [[place] 325-5 MG] 1 tab PO Q4H #10 tablet 04/04/20 [Rx] Escitalopram [Lexapro] 10 mg PO DAILY 04/04/20 [History] metFORMIN [Glucophage XR] 1,000 mg PO BID 04/04/20 [History] cephALEXin [Keflex] 500 mg PO BID #10 cap 07/14/20 [Rx] traZODone 1 tab PO BEDTIME 07/14/20 [History] Past Medical History - Past Health History Medical/Surgical History: Denies Medical/Surgical History HEENT History: Reports: None Cardiovascular History: Reports: Hypertension Respiratory History: Reports: None Gastrointestinal History: Reports: None Genitourinary History: Reports: UTI, Recurrent [employer] History: Reports: Neurological History: Reports: Brain Injury Psychiatric History: Reports: Addiction, Anxiety, Depression Endocrine/Metabolic History: Reports: None Hematologic History: Reports: None Immunologic History: Reports: None Oncologic (Cancer) History: Reports: None Dermatologic History: Reports: None - Infectious Disease History Infectious Disease History: Reports: None - Past Surgical History HEENT Surgical History: Reports: None GI Surgical History: Reports: Cholecystectomy Female Surgical History: Reports: Section, Dilitation & Evacuation Musculoskeletal Surgical History: Reports: Knee Replacement, Other (See Below) Other Musculoskeletal Surgeries/Procedures:: bilateral tib fib fractures and has hardware in place Social & Family History - Family History Family Medical History: No Pertinent Family History Neurological: Reports: Alzheimers Disease, Dementia Oncologic: Reports: Breast - Tobacco Use Tobacco Use Status *Q: Former Tobacco User Used Tobacco, but Quit: Yes Month/Year Tobacco Last Used: 11/15/2019 - Caffeine Use Caffeine Use: Reports: None Other Caffeine Use: decaf - Recreational Drug Use Recreational Drug Use: Yes Drug Use in Last 12 Months: Yes Recreational Drug Type: Reports: Marijuana/Hashish Recreational Drug Use Frequency: Daily - Living Situation & Occupation Living situation: Reports: Occupation: Employed ED ROS GENERAL - Review of Systems Review Of Systems: See Below Constitutional: Reports: No Symptoms HEENT: Reports: No Symptoms Respiratory: Reports: No Symptoms Cardiovascular: Reports: No Symptoms Endocrine: Reports: No Symptoms GI/Abdominal: Reports: Abdominal Pain. Denies: Diarrhea, Nausea, Vomiting : Reports: Dysuria Musculoskeletal: Reports: No Symptoms Skin: Reports: No Symptoms ED EXAM, RENAL/ - Physical Exam Exam: See Below Exam Limited By: No Limitations General Appearance: Alert, No Apparent Distress Ears: Normal External Exam Nose: Normal Inspection Head: Atraumatic, Normocephalic Neck: Normal Inspection Respiratory/Chest: No Respiratory Distress, Lungs Clear, Normal Breath Sounds Cardiovascular: Regular Rate, Rhythm, No Edema, No Murmur GI/Abdominal: Soft, Non-Tender, No Organomegaly, No Mass Back Exam: Normal Inspection Extremities: Normal Inspection Course - Vital Signs Last Recorded V/S: Last Vital Signs Temp 97.6 F 07/14/20 11:56 Pulse 85 07/14/20 11:56 Resp 18 07/14/20 11:56 BP 129/63 07/14/20 11:56 Pulse Ox 98 07/14/20 11:56 - Orders/Labs/Meds Orders: Active Orders 24 hr Category Date Time Status CULTURE URINE [MREF] Stat Lab 07/14/20 11:45 Received Labs: Laboratory Tests 07/14/20 Range/Units 11:45 Urine Color Yellow (Yellow) Urine Appearance Clear (Clear) Urine pH 6.0 (5.0-8.0) Ur Specific [place] 1.020 (1.005-1.030) Urine Protein Negative (Negative) Urine Glucose (UA) Negative (Negative) Urine Ketones Negative (Negative) Urine Occult Blood Negative (Negative) Urine Nitrite Negative (Negative) Urine Bilirubin Negative (Negative) Urine Urobilinogen 0.2 (0.2-1.0) Ur Leukocyte Esterase 1+ H (Negative) Urine RBC Not seen (0-5) /hpf Urine WBC 5-10 H (0-5) /hpf Ur Squamous Epith Cells 0-5 (0-5) /hpf Urine Bacteria Not seen (FEW) /hpf Urine Mucus Not seen (FEW) /hpf - Re-Assessments/Exams Free Text/Narrative Re-Assessment/Exam: 07/14/20 12:21 I ordered a UA. 07/14/20 12:49 Her UA shows a UTI. I will get her on some keflex. Departure - Departure Time of Disposition: 13:00 Disposition: Home, Self-Care 01 Condition: Good Clinical Impression: UTI, Urinary tract infectious disease - Discharge Information *PRESCRIPTION DRUG MONITORING PROGRAM REVIEWED*: Not Applicable *COPY OF PRESCRIPTION DRUG MONITORING REPORT IN PATIENT JELANI: Not Applicable Prescriptions: cephALEXin [Keflex] 500 mg PO BID #10 cap Referrals: Raad Pollock MD [Primary Care Provider] - Forms: ED Department Discharge Additional Instructions: Drink plenty of fluids. Take the keflex 2 times per day for 5 days. Please return if you are worse. Sepsis Event Note (ED) - Evaluation Sepsis Screening Result: No Definite Risk - Focused Exam Vital Signs: Vital Signs Temp Pulse Resp BP Pulse Ox 07/14/20 11:56 97.6 F 85 18 129/63 98 - My Orders Last 24 Hours: My Active Orders 07/14/20 11:45 CULTURE URINE [MREF] Stat - Assessment/Plan Last 24 Hours: My Active Orders 07/14/20 11:45 CULTURE URINE [MREF] Stat
== END 2020-07-14 13:13 | disposition home or self-care (01) ==
LOC: JD.ED 11:37
DX: N39.0 Urinary tract infection, site not specified (principal); I10 Essential (primary) hypertension; Z79.899 Other long term (current) drug therapy
CPT/HCPCS: 81001; 87086; 99283; 99284

== ENCOUNTER 2021-09-03 14:56 | Emergency (ER) | payer MEDICARE, MEDICAID ==
[2021-09-03] MEDS ORDERED: Orphenadrine 100 MG Tab.ER PO ONE (16:48)
[2021-09-03] MEDS ORDERED: Ketorolac 30 MG/ML SDV IM ONE (16:48)
== END 2021-09-03 18:50 | disposition home or self-care (01) ==
LOC: JD.ED 14:56
DX: R10.9 Unspecified abdominal pain (principal); I10 Essential (primary) hypertension; Z79.899 Other long term (current) drug therapy
CPT/HCPCS: 36415; 74176; 80053; 81001; 85025; 86140; 87086; 87088; 87186; 96372; 99284; A9270; J1885

== ENCOUNTER 2023-10-21 13:20 | Emergency (ER) | payer OTHER ==
[2023-10-21] MEDS: Acetaminophen/HYDROcodone 325-5 MG Tab PO ONE (17:52)
[2023-10-21 18:57] LABS: APPEARANCE,URINE CLEAR (Clear); BILIRUBIN,URINE NEGATIVE (Negative); COLOR,URINE LIGHT YELLOW (Yellow); GLUCOSE,URINE NEGATIVE (Negative); KETONES,URINE NEGATIVE (Negative); LEUKOCYTE ESTERASE,URINE NEGATIVE (Negative); NITRITE,URINE NEGATIVE (Negative); OCCULT BLOOD,URINE NEGATIVE (Negative); PROTEIN,URINE NEGATIVE (Negative); UROBILINOGEN,URINE 0.2 (0.2-1.0)
== END 2023-10-21 20:00 | disposition home or self-care (01) ==
LOC: JD.ED 13:20
DX: M25.551 Pain in right hip (principal); I10 Essential (primary) hypertension; Z90.49 Acquired absence of other specified parts of digestive tract; Z79.899 Other long term (current) drug therapy; Z79.4 Long term (current) use of insulin; V89.2XXA Person injured in unspecified motor-vehicle accident, traffic, initial encounter
CPT/HCPCS: 73502; 81003; 99284; A9270; 99283